=== PATIENT | female | born 1955 | race American Indian/Alaskan Native ===

== ENCOUNTER 2017-04-01 06:13 | Outpatient (CLI) | payer OTHER ==
[2017-04-01] MEDS ORDERED: NACL ONE (07:27)
[2017-04-01 07:32] LABS: Blood Urea Nitrogen 16 mg/dL (7-17)
--- NOTE | 2017-04-01 11:42 | Cat Scan Report ---
CT ABDOMEN PELVIS WITH AND WITHOUT CONTRAST History: Hematuria. Technique: Helical CT before and after IV contrast. Delayed imaging of the renal collecting systems. Sagittal and coronal reformatted images. CT urogram protocol. Findings: Both kidneys are normal size, contour and position measuring 10-11 cm in length. There is no evidence for nephrolithiasis on the precontrast images. There is a normal enhancement pattern and excretion of contrast in both kidneys following IV contrast. The ureters are normal course and caliber. No ureteral stones or hydronephrosis. There is normal filling of the bladder. The liver, biliary system, pancreas, spleen, adrenal glands, aorta, uterus and adnexa are within normal limits. There are few scattered diverticula in the distal colon. No acute inflammatory changes. Otherwise, the bowel loops and appendix are within normal limits given no oral contrast was administered. Heart size is normal. The visualized lung bases are clear. There is scoliosis in the lumbar region with degenerative changes. No fracture or suspicious bony lesion. Impression: Normal CT urogram. No clear explanation for hematuria. Mild diverticulosis of the distal colon. Scoliosis and lumbar spondylosis.
== END 2017-04-01 06:14 | disposition home or self-care (01) ==
LOC: CT 06:13
PROVIDERS: ATTEND Urology
DX: R31.1 Benign essential microscopic hematuria (principal); K57.30 Diverticulosis of large intestine without perforation or abscess without bleeding; M47.896 Other spondylosis, lumbar region; M41.86 Other forms of scoliosis, lumbar region
CPT/HCPCS: 36415; 74178; 82565; 84520; Q9967

== ENCOUNTER 2019-09-30 14:06 | Emergency (ER) | payer OTHER ==
[2019-09-30] MEDS ORDERED: IPRATROPIUM/ALBUTEROL SULFATE 3 ML AMPUL.NEB IH ONE (15:53)
--- NOTE | 2019-09-30 15:56 | Emergency Department Report ---
Chief Complaint: Upper Respiratory Infection Stated Complaint: FLU - HPI History of Present Illness: 64 yo F presents with cough, wheezing, SOB that has been going on since finishing recent treatment for influenza. Postive for influeza last week. Diagnosed with bronchitis twice at urgent care in August. Has been on z-pack. Patient became a little lightheaded at work earlier. No fever. No CP. Hx of HTN, DM - ROS Review of Systems: +SOB, wheezing, coughing, lightheaded -CP, HAJI, fever - Exam Vital Signs: Vital Signs 09/30/19 14:10 Temperature 98.0 F Pulse Rate 69 Respiratory 18 Rate Blood Pressure 144/80 O2 Sat by Pulse 99 Oximetry Physical Exam: Mild wheezing throughout chest with bronchospastic cough No respiratory distress AAO x 3. Heart sounds normal. Ambulatory into triage MSE screening note: Focused history and physical exam performed. Due to findings the following was ordered: CBC, BMP CXR Duoneb To fast track Patient discussed with doctor:: SAJAN BOB ED Disposition for MSE Condition: Stable
--- NOTE | 2019-09-30 16:31 | Emergency Department Report ---
Minor Respiratory - HPI Chief Complaint: Upper Respiratory Infection Stated Complaint: FLU Time Seen by Provider: 09/30/19 16:14 Minor Respiratory: Yes Able to Tolerate Fluids, Yes Cough, No Rhinorrhea, No Sore Throat, No Ear Pain, No Sick Contacts, No Hemoptysis, No Chest Pain, No Shortness of Breath, No Fever Other History: 64 yo F presents with cough, wheezing, that has been going on since finishing recent treatment for influenza last week. Postive for influeza last week. She states that she was Diagnosed with bronchitis twice at urgent care in bowel to 3 weeks ago. Has completed her z-pack percussion. Patient became a little lightheaded at work earlier. She denies fevers/chills/chest pain/shortness of breath/dizziness/headache ED Review of Systems ROS: Stated complaint: FLU Other details as noted in HPI Comment: All other systems reviewed and negative ED Past Medical Hx - Past Medical History Hx Hypertension: Yes Hx Diabetes: Yes - Surgical History Additional Surgical History: x1 - Social History Smoking Status: Never Smoker Substance Use Type: None - Medications Home Medications: Home Medications Medication Instructions Recorded Confirmed Last Taken Type guaiFENesin/CODEINE [Robitussin AC] 5 ml PO TID #80 ml 09/30/19 Unknown Rx Minor Respiratory Exam - Exam General: Vital signs noted. No distress. Alert and acting appropriately. HEENT: Yes Moist Mucous Membranes, No Pharyngeal Erythema, No Pharyngeal Exudates, No Rhinorrhea, No Conjuctival Injection, No Frontal Tenderness, No Maxillary Tenderness Ear: Neither TM Bulge, Neither TM Erythema, Neither EAC Pain, Neither EAC Discharge Neck: Yes Supple, No Adenopathy Lungs: Yes Good Air Exchange, No Wheezes, No Ronchi, No Stridor, No Cough, No Labored Respirations, No Retractions, No Use of Accessory Muscles, No Other Abnormal Lung Sounds Heart: Yes Regular, No Murmur Abdomen: Yes Normal Bowel Sounds, No Tenderness, No Peritoneal Signs Skin: No Rash, No Edema Neurologic: Alert and oriented, no deficits. Musculoskeletal: Unremarkable. ED Course Vital Signs 09/30/19 14:10 Temperature 98.0 F Pulse Rate 69 Respiratory 18 Rate Blood Pressure 144/80 O2 Sat by Pulse 99 Oximetry ED Medical Decision Making - Lab Data Result diagrams: 09/30/19 16:34 09/30/19 16:34 - Radiology Data Radiology results: report reviewed, image reviewed No acute findings. No cardiopulmonary process - Medical Decision Making 64-year-old female presents with bronchitis . No fever during the ED stay. Discussed with patient symptomatic relief with [id number] medications. Discussed continue Tylenol and Motrin as needed for pain. Chest x-ray was ordered. Chest x-ray shows no acute findings no signs of pneumonia discussed this with the patient. Discussed increase fluids and diet intake. Discussed rest much needed. Discussed daily vitamin C for immune booster. Discussed follow-up with the care physician in 3-5 days. Patient verbally states she understands and will comply the following instructions and follow-up Vital signs stable. Patient is in no acute distress Critical care attestation.: If time is entered above; I have spent that time in minutes in the direct care of this critically ill patient, excluding procedure time. ED Disposition Clinical Impression: Upper respiratory infection, Acute bronchitis, Acute bronchospasm Disposition: DC- TO HOME OR SELFCARE Is pt being admited?: No Does the pt Need Aspirin: No Condition: Stable Instructions: Upper Respiratory Infection (ED), Acute Bronchitis (ED), Bronchospasm (ED) Additional Instructions: Make sure to follow up with the primary care physician as discussed. Take all your medications as you've been prescribed. If you have any worsening symptoms or develop new symptoms please return to ED immediately. Prescriptions: guaiFENesin/CODEINE [Robitussin AC] 5 ml PO TID #80 ml Referrals: [facility] [Outside] - 3-5 Days [facility] [Outside] - 3-5 Days Time of Disposition: 17:50
--- NOTE | 2019-09-30 16:34 | XRay Report ---
CHEST 2 VIEWS INDICATION / CLINICAL INFORMATION: cough, wheezing, SOB. COMPARISON: Chest x-ray on 10/25/2016 FINDINGS: SUPPORT DEVICES: None. HEART / MEDIASTINUM: Normal heart size. Atherosclerosis in the thoracic aorta. LUNGS / PLEURA: No significant pulmonary or pleural abnormality. No pneumothorax. ADDITIONAL FINDINGS: No significant additional findings. IMPRESSION: 1. No acute findings. Signer Name: Rupesh Mott MD Signed: 09/30/2019 4:30 PM Workstation Name: [id number]
[2019-09-30 16:43] LABS: Hematocrit 39.4 % (30.3-42.9); Hemoglobin 13.1 gm/dl (10.1-14.3); Mean Corpuscular HGB Conc 33 % (30-34); Mean Corpuscular Volume 94 fl (79-97); Platelet Count 357 K/mm3 (140-440); Red Blood Count 4.19 M/mm3 (3.65-5.03); Red Cell Distribution Width 13.1 % (13.2-15.2)
[2019-09-30 17:02] LABS: BUN/Creatinine Ratio 19; Blood Urea Nitrogen 13 mg/dL (7-17); Calcium 9.8 mg/dL (8.4-10.2); Hemolysis Index 9
[2019-09-30 18:23] VITALS: BP 128/79
[2019-09-30 19:08] LABS: Basophils % (Manual) 0 % (0.0-1.8); Total Cells Counted 100
[2019-09-30 19:09] LABS: Anisocytosis Few; Ovalocytes Few
[2019-09-30 19:10] LABS: Large Platelets 1+; Platelet Estimate Consistent w Auto
== END 2019-09-30 18:21 | disposition home or self-care (01) ==
LOC: ED 14:06
DX: J06.9 Acute upper respiratory infection, unspecified (principal); J20.9 Acute bronchitis, unspecified; I10 Essential (primary) hypertension; E11.9 Type 2 diabetes mellitus without complications; Z98.890 Other specified postprocedural states; Z79.899 Other long term (current) drug therapy; Z88.4 Allergy status to anesthetic agent
CPT/HCPCS: 36415; 71046; 80048; 85007; 85025; 94640; 94644

== ENCOUNTER 2021-02-20 17:46 | Emergency (ER) | payer OTHER ==
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
[2021-02-21 01:45] VITALS: BP 148/69
== END 2021-02-21 01:30 | disposition home or self-care (01) ==
LOC: ED 17:46
DX: M54.2 Cervicalgia (principal); M54.5 Low back pain; R51.9 Headache, unspecified; I10 Essential (primary) hypertension; E11.9 Type 2 diabetes mellitus without complications; Z98.890 Other specified postprocedural states; Z88.5 Allergy status to narcotic agent; Z79.899 Other long term (current) drug therapy; V87.7XXA Person injured in collision between other specified motor vehicles (traffic), initial encounter; Y93.89 Activity, other specified; Y92.488 Other paved roadways as the place of occurrence of the external cause; Y99.8 Other external cause status
CPT/HCPCS: 70450; 72040; 72100; 72131; 99284